=== PATIENT | female | born 1930 | race Caucasian/White ===

== ENCOUNTER 2018-10-14 16:29 | Inpatient (IN) ==
[2018-10-14] MEDS ORDERED: MORPHINE IV PRN (16:57)
[2018-10-14] MEDS ORDERED: ATIVAN IV SCH (17:00)
[2018-10-14] MEDS: MORPHINE PCA IV PRN ×3 (17:18→21:11)
[2018-10-14] MEDS ORDERED: ATROPINE 1 % OPHTH SOLN SL PRN ×2 (18:05→18:16)
[2018-10-14] MEDS ORDERED: ATIVAN IV PRN (18:06)
[2018-10-14] MEDS ORDERED: TRANSDERM-SCOP TD SCH (18:45)
[2018-10-14 21:19] VITALS: BP 60/35
--- NOTE | 2018-10-15 06:12 | DISCHARGE SUMMARY ---
ADMISSION DATE: 10/14/2018 DISCHARGE DATE: 10/15/2018 FINAL DISCHARGE DIAGNOSES: 1. Pneumoperitoneum. 2. End stage renal disease. 3. Severe metabolic acidosis with an anion gap. 4. Hypocalcemia. 5. Gout. 6. Sepsis. 7. Severe protein calorie malnutrition. 8. Vitamin D deficiency. HOSPITAL COURSE: Ms. Montano is an 88-year-old female who was brought to the ER with a chief complaint of abdominal pain. The patient has a history of CLL and end-stage renal disease. Despite having end-stage renal disease, the patient had always refused dialysis. Upon arrival to the ER, the patient was noted to have a white count of 45,000. A CT of the abdomen and pelvis was done that revealed a pneumoperitoneum and with the possibility of a perforated viscus. General surgery was consulted while the patient was in the ER and after discussion with the patient's family, they opted for conservative management. Also, the patient refused surgical intervention. Palliative care was also consulted given the multiple derangements in the patient's laboratory studies. The patient's family and the patient decided to focus on comfort measures. The patient was made a Do Not Resuscitate level 1 and started on a morphine GEOLOGIC TECHNICIAN. The patient was then transferred to a private room on the medical floor. At 2155 on 10/14/2018, the patient was pronounced . The patient's family was notified of the patient's . cc: Miladis Blair MD MTDD
== END 2018-10-14 21:55 | disposition expired | DRG 871 ==
LOC: EDIPHOLD 16:30 → UNDODISIN 16:59 → 3N 18:00
PROVIDERS: ATTEND Internal Medicine
CPT/HCPCS: A9270; J2060; J2270; J2275; Q9974